=== PATIENT | female | born 1995 | race Caucasian/White ===

== ENCOUNTER 2022-07-04 18:17 | Observation (INO) | payer OTHER ==
[~2022-07-04] VITALS: Ht 162.6 cm; Wt 82.6 kg
[2022-07-04] MEDS ORDERED: PREN1TAB23 PO (20:33)
[2022-07-04] MEDS ORDERED: FERROUS SULFATE (20:33)
== END 2022-07-04 21:00 | disposition home or self-care (01) ==
LOC: 8 EST LDRP 18:17
PROVIDERS: ADMIT Obstetrics & Gynecology; ATTEND Obstetrics & Gynecology
DX: O42.92 Full-term premature rupture of membranes, unspecified as to length of time between rupture and onset of labor (principal); Z3A.38 38 weeks gestation of pregnancy
CPT/HCPCS: 59025; 76805; 76818; G0378; 99281; G0379

== ENCOUNTER 2022-07-07 09:37 | Observation (INO) | payer OTHER ==
[~2022-07-07] VITALS: Ht 162.6 cm; Wt 82.6 kg
[~2022-07-07 09:37] MED LIST: FERROUS SULFATE; PREN1TAB23 PO
== END 2022-07-07 17:12 | disposition home or self-care (01) ==
LOC: 8 EST LDRP 09:37
PROVIDERS: ADMIT Obstetrics & Gynecology; ATTEND Obstetrics & Gynecology
DX: O42.92 Full-term premature rupture of membranes, unspecified as to length of time between rupture and onset of labor (principal); Z3A.38 38 weeks gestation of pregnancy
CPT/HCPCS: 59025; 76815; 76818; G0378

== ENCOUNTER 2022-07-09 17:47 | Observation (INO) | payer OTHER ==
[~2022-07-09] VITALS: Ht 160 cm; Wt 82.6 kg
== END 2022-07-09 20:15 | disposition home or self-care (01) ==
LOC: 8 EST LDRP 17:47
PROVIDERS: ADMIT Obstetrics & Gynecology; ATTEND Obstetrics & Gynecology
DX: O42.92 Full-term premature rupture of membranes, unspecified as to length of time between rupture and onset of labor (principal); Z3A.39 39 weeks gestation of pregnancy
CPT/HCPCS: 59025; 76805; 76818; G0378; 99281

== ENCOUNTER 2022-07-14 07:47 | Inpatient (IN) | payer OTHER ==
[~2022-07-14] VITALS: Ht 162.6 cm; Wt 82.6 kg
[2022-07-14] MEDS ORDERED: LIDOCAINE 2%/EPINEPHRINE 1:200,000 20 ML VIAL INJ ONE (08:00)
[2022-07-14] MEDS ORDERED: LIDOCAINE HCL 1% 20ML VIAL (Pyxis) INJ INFIL SCH (11:00)
[2022-07-14] MEDS ORDERED: NALOXONE HCL 0.4 MG/ML 1ML VIAL IM PRN (11:00)
[2022-07-14] MEDS ORDERED: METHYLERGONOVINE MALEATE 0.2 MG/ML IM PRN (11:00)
[2022-07-14] MEDS ORDERED: RHO(D) IMMUNE GLOBULIN 300 MCG/SYR IM NR (11:00)
[2022-07-14] MEDS ORDERED: OXYTOCIN 30 UNITS/500ML NS PMX 500 ML IV SCH (11:00)
[2022-07-14] MEDS ORDERED: CARBOPROST TROMETHAMINE 250 MCG/ML AMPUL IM PRN (11:00)
[2022-07-14] MEDS: LACTATED RINGERS 1,000 ML IV SCH ×2 (11:30→11:39)
[2022-07-14 11:43] LABS: CLARITY URINE CLOUDY (CLEAR); COLOR URINE YELLOW (YELLOW); KETONES URINE NEGATIVE (NEGATIVE); LEUKOCYTE ESTERASE URINE 2+ (NEGATIVE); NITRITE URINE NEGATIVE (NEGATIVE); OCCULT BLOOD URINE NEGATIVE (NEGATIVE); PH URINE 6.5 (4.5-8.0); PROTEIN URINE TRACE (NEGATIVE)
[2022-07-14 11:47] LABS: BASOPHILS % 0.4 % (0.0-2.0); EOSINOPHILS % 1.7 % (0.0-5.0); HEMATOCRIT. 34.2 % (36.0-48.0); LYMPHOCYTES % 23.4 % (20.0-50.0); MEAN CORPUSCULAR HEMOGLOBIN 31.4 pg (28.0-32.0); MEAN CORPUSCULAR VOLUME 89.5 fL (81.0-99.0); MEAN PLATELET VOLUME 7.5 fl (7.4-10.4); MONOCYTES % 6.6 % (2.0-8.0); NEUTROPHILS % 67.9 % (40.0-76.0); PLATELET 235 x1000/uL (130-400); RED BLOOD CELL COUNT 3.82 mill/uL (4.2-5.4); RED CELL DISTRIBUTION WIDTH 14.4 % (11.6-14.6)
[2022-07-14 11:58] LABS: INR 0.9; PARTIAL THROMBOPLASTIN TIME 28.2 sec (23.4-31.0); PROTHROMBIN TIME 9.5 sec (9.6-11.0)
[2022-07-14 12:04] LABS: *AMPHETAMINES SCREEN URINE NEGATIVE (NEGATIVE); *BARBITURATES SCREEN URINE NEGATIVE (NEGATIVE); *BENZODIAZEPINES SCREEN URINE NEGATIVE (NEGATIVE); *COCAINE SCREEN URINE NEGATIVE (NEGATIVE); CANNABINOID URINE SCREEN NEGATIVE (NEGATIVE); METHADONE URINE SCREEN NEGATIVE (NEGATIVE); OPIATES URINE SCREEN NEGATIVE (NEGATIVE); PHENCYCLIDINE URINE SCREEN NEGATIVE (NEGATIVE)
[2022-07-14 12:35] LABS: HEPATITIS B SURFACE ANTIGEN NEGATIVE
[2022-07-14] MEDS ORDERED: MEPERIDINE HCL/PF 50MG/ML CPJ IM PRN (20:45)
[2022-07-14] MEDS ORDERED: NALOXONE HCL 0.4MG/ML VIAL IV PRN (21:00)
[2022-07-15] MEDS: LACTATED RINGERS 1,000 ML IV SCH ×3 (02:03→09:21)
[2022-07-15] MEDS ORDERED: ROPIVACAINE HCL/PF EPIDURAL 200 ML EPI ONE (18:46)
[2022-07-16] MEDS: LACTATED RINGERS 1,000 ML IV SCH ×3 (00:44→08:42)
[2022-07-16] MEDS ORDERED: SODIUM CHLORIDE 0.9% 10ML VIAL ONE (08:03)
[2022-07-16] MEDS ORDERED: ONDANSETRON HCL 4MG/2ML INJ ONE (08:03)
[2022-07-16] MEDS ORDERED: CEFAZOLIN SODIUM 1000MG/VIAL ONE (08:03)
[2022-07-16] MEDS ORDERED: MORPHINE SULFATE/PF 1MG/ML 10ML AMP ONE (08:03)
[2022-07-16] MEDS ORDERED: PHENYLEPHRINE HCL 10 MG/ML 1ML (IV VIAL) IV ONE (08:03)
[2022-07-16] MEDS ORDERED: OXYTOCIN 10 UNITS/ML 1ML ONE ×2 (08:03→09:38)
[2022-07-16] MEDS ORDERED: EPHEDRINE SULFATE 50MG/ML VIAL ONE (08:03)
[2022-07-16] MEDS ORDERED: FENTANYL CITRATE/PF 50MCG/ML 2ML VIAL ONE (08:03)
[2022-07-16] MEDS ORDERED: DIPHENHYDRAMINE 50MG/ML VIAL ONE (09:34)
[2022-07-16] MEDS ORDERED: KETOROLAC 60MG/2ML VIAL IM ONE (09:36)
[2022-07-16] MEDS ORDERED: DIPHENHYDRAMINE 50MG/ML VIAL IV PRN (09:45)
[2022-07-16] MEDS ORDERED: NALOXONE HCL 0.4 MG/ML 1ML VIAL IV PRN (09:45)
[2022-07-16 12:15] VITALS: BP 111/49
[2022-07-16 16:00] VITALS: BP 94/49
[2022-07-16 19:30] VITALS: BP 102/42
[2022-07-16] MEDS ORDERED: ONDANSETRON HCL 4MG/2ML INJ IV PRN (20:15)
[2022-07-16] MEDS ORDERED: OXYTOCIN 30 UNITS/500ML NS PMX 500 ML IV SCH (20:15)
[2022-07-16] MEDS ORDERED: HEMORRHOIDAL SUPP PR PRN (20:15)
[2022-07-16] MEDS ORDERED: LANOLIN OINT 7GM TUBE TOP PRN (20:15)
[2022-07-16] MEDS ORDERED: IBUPROFEN 400MG TABLET PO PRN (20:15)
[2022-07-16] MEDS ORDERED: DIPHENHYDRAMINE 25MG CAPSULE PO PRN (20:15)
[2022-07-16] MEDS ORDERED: RHO(D) IMMUNE GLOBULIN 300 MCG/SYR IM PRN (20:15)
[2022-07-16] MEDS ORDERED: HYDROCODONE/ACETAMINOPHEN 5/325MG TABLET PO PRN (20:15)
[2022-07-16] MEDS ORDERED: ACETAMINOPHEN WITH CODEINE 300/30MG TABLET PO PRN (20:15)
[2022-07-16] MEDS: SIMETHICONE 80MG TABLET CHEW PO SCH (22:00)
[2022-07-16] MEDS: DOCUSATE SODIUM 100MG CAPSULE PO SCH (22:00)
[2022-07-16] MEDS: MAGNESIUM/ALUMINUM HYDROXIDE/SIMETHICONE 30ML UDC PO SCH (22:00)
[2022-07-16] MEDS: KETOROLAC 30MG/ML VIAL IV SCH (22:18)
[2022-07-17] VITALS: BP 95/53
[2022-07-17] MEDS: LACTATED RINGERS 1,000 ML IV SCH (01:17)
[2022-07-17 04:00] VITALS: BP 102/42
[2022-07-17] MEDS: KETOROLAC 30MG/ML VIAL IV SCH (04:13)
[2022-07-17 06:17] LABS: BASOPHILS % 0.3 % (0.0-2.0); EOSINOPHILS % 0.5 % (0.0-5.0); HEMATOCRIT. 25.8 % (36.0-48.0); HEMOGLOBIN. 9.1 g/dL (12.0-16.0); LYMPHOCYTES % 12.7 % (20.0-50.0); MEAN CORPUSCULAR HEMOGLOBIN 31.7 pg (28.0-32.0); MEAN CORPUSCULAR VOLUME 89.7 fL (81.0-99.0); MONOCYTES % 5.2 % (2.0-8.0); NEUTROPHILS % 81.3 % (40.0-76.0); PLATELET 170 x1000/uL (130-400); RED BLOOD CELL COUNT 2.87 mill/uL (4.2-5.4); RED CELL DISTRIBUTION WIDTH 14.1 % (11.6-14.6)
[2022-07-17 07:30] VITALS: BP 101/46
[2022-07-17] MEDS ORDERED: TETANUS, DIPHTHERIA, PERTUSSIS VAC/PF 0.5ML (>10YR OLD) IM ONE (09:00)
[2022-07-17] MEDS: PRENATAL VIT/FE FUMARATE/FA TABLET PO SCH (09:40)
[2022-07-17] MEDS: SIMETHICONE 80MG TABLET CHEW PO SCH ×2 (09:40→21:34)
[2022-07-17] MEDS: FERROUS SULFATE 325MG TABLET PO SCH (09:40)
[2022-07-17] MEDS: IBUPROFEN 800MG TABLET PO PRN ×2 (09:40→19:52)
[2022-07-17] MEDS: MAGNESIUM/ALUMINUM HYDROXIDE/SIMETHICONE 30ML UDC PO SCH ×2 (09:41→21:34)
[2022-07-17] MEDS ORDERED: NALOXONE HCL 0.4MG/ML VIAL IV PRN (09:46)
[2022-07-17 17:00] VITALS: BP 115/69
[2022-07-17 20:00] VITALS: BP 121/56
[2022-07-17] MEDS ORDERED: MEASLES,MUMPS&RUBELLA VACCINE 1 VIAL SUBCUT ONE (20:00)
[2022-07-17] MEDS: DOCUSATE SODIUM 100MG CAPSULE PO SCH (21:34)
[2022-07-18] MEDS: IBUPROFEN 800MG TABLET PO PRN ×2 (03:25→13:21)
[2022-07-18 04:00] VITALS: BP 101/53
[2022-07-18 08:00] VITALS: BP 105/48
[2022-07-18] MEDS: PRENATAL VIT/FE FUMARATE/FA TABLET PO SCH (09:21)
[2022-07-18] MEDS: FERROUS SULFATE 325MG TABLET PO SCH ×2 (09:21→13:21)
[2022-07-18] MEDS: MAGNESIUM/ALUMINUM HYDROXIDE/SIMETHICONE 30ML UDC PO SCH ×2 (09:21→13:21)
[2022-07-18] MEDS: SIMETHICONE 80MG TABLET CHEW PO SCH ×2 (09:21→13:21)
== END 2022-07-18 15:30 | disposition home or self-care (01) | DRG 540 ==
LOC: 8 EST LDRP 07:47 → OBSVTOIN 07:47 → 8 EST LDRP 12:01 → 8EST 07-16 12:00
PROVIDERS: ADMIT Obstetrics & Gynecology; ATTEND Obstetrics & Gynecology
PROC: 10D00Z1 Extraction of Products of Conception, Low, Open Approach (ICD-10-PCS; principal; 2022-07-16)
DX: O76 Abnormality in fetal heart rate and rhythm complicating labor and delivery (principal); O61.9 Failed induction of labor, unspecified; O36.5990 Maternal care for other known or suspected poor fetal growth, unspecified trimester, not applicable or unspecified; Z20.822 Contact with and (suspected) exposure to COVID-19; Z37.0 Single live birth; Z3A.39 39 weeks gestation of pregnancy; O77.0 Labor and delivery complicated by meconium in amniotic fluid
CPT/HCPCS: 36415; 76805; 76818; 80305; 81003; 85025; 86592; 86703; 86762; 86850; 86900; 86920; 87340; 87426; 88307; 90707; 99281; J0690; J1200; J1885; J2175; J2274; J2370; J2405; J2795; J3010; J3490; J7120; J2590

== ENCOUNTER 2022-12-28 14:26 | Emergency (ER) | payer OTHER ==
[~2022-12-28] VITALS: Ht 160 cm; Wt 81.0 kg
[2022-12-28 14:33] VITALS: PULSE 120
[2022-12-28 14:34] VITALS: BP 119/80; RESP 16; TEMP 98.3; O2SAT 96
[2022-12-28 15:06] LABS: BASOPHILS % 0.2 % (0.0-2.0); EOSINOPHILS % 3.2 % (0.0-5.0); HEMATOCRIT. 38.5 % (36.0-48.0); HEMOGLOBIN. 13.2 g/dL (12.0-16.0); INR 0.9; LYMPHOCYTES % 14.8 % (20.0-50.0); MEAN CORPUSCULAR HEMOGLOBIN 29.4 pg (28.0-32.0); MEAN CORPUSCULAR HGB CONC 34.2 g/dL (31.0-37.0); MEAN CORPUSCULAR VOLUME 85.7 fL (81.0-99.0); MONOCYTES % 6.7 % (2.0-8.0); NEUTROPHILS % 75.1 % (40.0-76.0); PLATELET 303 x1000/uL (130-400); PROTHROMBIN TIME 10.1 sec (9.6-11.0); RED CELL DISTRIBUTION WIDTH 13.9 % (11.6-14.6)
[2022-12-28 16:13] LABS: CLARITY URINE CLEAR (CLEAR); COLOR URINE YELLOW (YELLOW); GLUCOSE URINE NEGATIVE (NEGATIVE); KETONES URINE NEGATIVE (NEGATIVE); LEUKOCYTE ESTERASE URINE NEGATIVE (NEGATIVE); NITRITE URINE NEGATIVE (NEGATIVE); OCCULT BLOOD URINE NEGATIVE (NEGATIVE); PH URINE 6.5 (4.5-8.0); PROTEIN URINE 1+ (NEGATIVE); SPECIFIC GRAVITY URINE 1.016 (1.005-1.030); UROBILINOGEN URINE 0.2 E.U./dL (0.2-1.0)
[2022-12-28 16:19] LABS: RBC URINE 0-2 /hpf (0-2); SQUAMOUS EPITHELIAL CELL URINE 1+ /lpf (RARE/1+); YEAST URINE NONE SEEN
[2022-12-28 16:31] LABS: ALANINE AMINOTRANSFERASE 140 IU/L (10-49); ALBUMIN 5.1 g/dL (3.2-4.8); ASPARTATE AMINOTRANSFERASE 56 IU/L (<34); BILIRUBIN TOTAL 0.5 mg/dL (0.1-1.0); CALCIUM 10.3 mg/dL (8.7-10.4); CARBON DIOXIDE 20 mEq/L (21-32); CHLORIDE 107 mEq/L (98-107); CREATININE 0.8 mg/dL (0.6-1.0); GLUCOSE 114 mg/dL (70-105); POTASSIUM 3.9 mEq/L (3.5-5.1); PROTEIN TOTAL 7.9 g/dL (6.0-8.3); SODIUM 138 mEq/L (136-145); UREA NITROGEN BLOOD 9 mg/dL (9-23)
[2022-12-28 16:35] LABS: TROPONIN I HIGH SENSITIVITY < 4 ng/L (3.0-34)
[2022-12-28 17:18] LABS: BACTERIA URINE TRACE; WBC URINE 0-2 /hpf (0-2)
== END 2022-12-28 18:55 | disposition left against medical advice (07) ==
LOC: ER 14:40
DX: R06.02 Shortness of breath (principal); I49.9 Cardiac arrhythmia, unspecified; Z53.21 Procedure and treatment not carried out due to patient leaving prior to being seen by health care provider
CPT/HCPCS: 36415; 71045; 80053; 81003; 81025; 84484; 85025; 93005; 99281